=== PATIENT | male | born 1935 | race Caucasian/White ===

== ENCOUNTER 2017-02-12 11:04 | Emergency (ER) | payer MEDICARE ==
[2017-02-12 11:50] LABS: Hematocrit 38 % (42-52); Hemoglobin 12.7 g/dl (14.0-18.0); Mean Corpuscular HGB Conc 33 g/dl (31-36); Mean Corpuscular Hemoglobin 30 pg (27-31); Mean Corpuscular Volume 92 fL (80-94); Mean Platelet Volume 9 um3 (7.4-10.4); Red Blood Count 4.16 10^6/ul (4.0-5.4); Red Cell Distribution Width 18 % (10.5-15); White Blood Count 9.5 10^3/ul (3.5-10.8)
[2017-02-12 12:05] LABS: Albumin 3.5 g/dL (3.2-5.2); BUN/Creatinine Ratio 21.5 (8-20); C Reactive Protein 5.37 mg/L (< 5.00); Calcium 9.4 mg/dL (8.6-10.3); EGFR African American 84.9 (>60); Globulin 2.9 g/dL (2-4); Potassium 4.5 mmol/L (3.5-5.0); Total Bilirubin 1.5 mg/dL (0.2-1.0); Total Protein 6.4 g/dL (6.4-8.9); Uric Acid 5.7 mg/dL (4.4-7.6)
--- NOTE | 2017-02-12 12:53 | RAD ---
INDICATION: LEFT lower extremity edema. COMPARISON: No relevant prior exams available on the [facility] for comparison. TECHNIQUE: Manjarrez scale, color Doppler, and spectral analysis of the deep veins of the LEFT lower extremity. Vessel compression, phasicity, and augmentation assessed. REPORT: The LEFT common femoral, great saphenous, profunda femoral, femoral, popliteal, and posterior tibial veins are patent. Assessment of the peroneal veins is limited due to peroneal artery calcifications. Vague suggestion of compressibility of the peroneal veins however no flow detected within either peroneal vein on color Doppler. Patency of the RIGHT common femoral vein documented. 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 The adjacent posterior tibial calf veins as well as the popliteal and additional above knee LEFT lower extremity deep veins are patent.
--- NOTE | 2017-02-12 12:58 | RAD ---
INDICATION: Shortness of breath and bilateral lower extremity edema COMPARISON: None TECHNIQUE: PA and lateral views of the chest were obtained. FINDINGS: There is a single lead cardiac pacemaker. There is mild cardiomegaly. There is density obscuring the bilateral lung bases more severely the right than the left. More superiorly the lungs are aerated. The pulmonary vascular is engorged and indistinct. Visualized bones are normal for the patient's age. There is no radiographic evidence of free air beneath the diaphragm IMPRESSION: RADIOGRAPHIC FINDINGS ARE MOST CONSISTENT WITH CARDIOGENIC PULMONARY EDEMA WITH BIBASILAR PLEURAL EFFUSIONS.
[2017-02-12] MEDS ORDERED: cefTRIAXone(*) 1 GM in NS 0.9% 50 ML* 50 ML IVPB ONE (13:00)
[2017-02-12] MEDS ORDERED: cefTRIAXone(*) 1 GM in D5W 50 ML BAG* 50 ML IVPB ONE (13:24)
[2017-02-12 14:44] VITALS: BP 99/57
[2017-02-12 16:02] LABS: Urine Bacteria 1+ (Absent); Urine Bilirubin Negative (Negative); Urine Glucose Negative (Negative); Urine Nitrite Negative (Negative)
--- NOTE | 2017-02-13 15:29 | ED ---
Ruth Ann Snow Edward, scribed for Donovan Yoder MD on 02/12/17 at 1117 . Lower Extremity - HPI Summary HPI Summary: 81 y/o male presents to the ED c/o constant swelling in the L foot. The symptoms are not aggravated or alleviated with anything. Pt also has had pain at his R big toe that radiated up his R leg. Associated sx: L foot is warm to touch, chronic SOB that was worse two days ago. Pt lives at [facility]. Pt uses a wheelchair at [facility]. - History of Current Complaint Chief Complaint: EDExtremityLower Stated Complaint: FOOT PAIN Time Seen by Provider: 02/12/17 11:07 Hx Obtained From: Patient Severity Currently: Mild Pain Intensity: 4 Pain Scale Used: 0-10 Numeric Timing: Constant Location: Is Discrete @ - L foot Associated Signs And Symptoms: Positive: Swelling, Other - R big toe pain Aggravating Factor(s): Nothing Alleviating Factor(s): Nothing - Allergies/Home Medications Allergies/Adverse Reactions: Allergies Allergy/AdvReac Type Severity Reaction Status Date / Time sulfa Allergy Unknown Uncoded 02/12/17 11:12 Reaction Details Home Medications: Home Medications Allopurinol TAB* [Zyloprim 100 MG TAB*] 100 mg PO DAILY 02/12/17 [History Confirmed 02/12/17] Apixaban* [Eliquis*] 2.5 mg PO Q12HR 02/12/17 [History Confirmed 02/12/17] Dutasteride (NF) [Avodart (NF)] 0.5 mg PO DAILY 02/12/17 [History Confirmed 06/26] Furosemide TAB* [Lasix TAB*] 40 mg PO BID 02/12/17 [History Confirmed 02/12/17] Melatonin 2 ml PO BEDTIME 02/12/17 [History Confirmed 02/12/17] Metoprolol Succinate XL TAB* [Toprol XL TAB*] 25 mg PO DAILY 02/12/17 [History Confirmed 02/12/17] Omeprazole CAP* [Prilosec CAP* 20 MG] 20 mg PO DAILY 02/12/17 [History Confirmed 02/12/17] Polyethylene Glycol 3350* [Miralax*] 17 gm PO DAILY PRN 02/12/17 [History Confirmed 02/12/17] Potassium Chlor TAB* [Klor Con ER TAB*] 20 meq PO BID 02/12/17 [History Confirmed 02/12/17] Pravastatin (NF) [Pravachol (NF)] 20 mg PO BEDTIME 02/12/17 [History Confirmed 02/12/17] Sodium Phosphate ADULT ENEMA* [Fleet Enema*] 1 enema [place] DAILY PRN 02/12/17 [ History Confirmed 02/12/17] PMH/Surg Hx/FS Hx/Imm Hx Previously Healthy: No Cardiovascular History: Reports: Hx Atrial Fibrillation, Hx Congestive Heart Failure History: Reports: Hx Acute Renal Failure - Surgical History Surgery Procedure, Year, and Place: Gall bladder removal, APPY, TONSILLECTOMY Infectious Disease History: No Infectious Disease History: Denies: Traveled Outside the [place] in Last 30 Days - Family History Known Family History: Positive: Cardiac Disease - Social History Occupation: Retired Lives: Assisted Living Alcohol Use: None Hx Substance Use: No Substance Use Type: Reports: None Hx Tobacco Use: No Smoking Status (MU): Never Smoked Tobacco Review of Systems Constitutional: Negative Eyes: Negative ENT: Negative Cardiovascular: Negative Respiratory: Negative Gastrointestinal: Negative Genitourinary: Negative Positive: Edema, Other - R big toe pain Skin: Negative Neurological: Negative Psychological: Normal All Other Systems Reviewed And Are Negative: Yes Physical Exam - Summary Physical Exam Summary: PE - good pulses, foot is warm. minimal tenderness. Triage Information Reviewed: Yes Vital Signs On Initial Exam: Initial Vitals Temp Pulse Resp BP Pulse Ox 98.1 F 68 16 108/70 98 02/12/17 11:04 02/12/17 11:04 02/12/17 11:04 02/12/17 11:04 02/12/17 11:04 Vital Signs Reviewed: Yes Diagnostics - Vital Signs Vital Signs Temp Pulse Resp BP Pulse Ox 02/12/17 11:04 98.1 F 68 16 108/70 98 - Laboratory Result Diagrams: 02/12/17 11:34 02/12/17 11:34 Lab Statement: Any lab studies that have been ordered have been reviewed, and results considered in the medical decision making process. - Radiology CXR Xray Interpretation: Positive (See Comments) - RADIOGRAPHIC FINDINGS ARE MOST CONSISTENT WITH CARDIOGENIC PULMONARY EDEMA WITH BIBASILAR PLEURAL EFFUSIONS. 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 The adjacent posterior tibial calf veins as well as the popliteal and additional above knee LEFT lower extremity deep veins are patent. Ultrasound Interpretation Completed By: Radiologist - ED PHYSICIAN REVIEWS AND AGREES Lower Extremity Course/Dx - Course Assessment/Plan: 81 y/o male presents to the ED c/o constant swelling in the L foot. The symptoms are not aggravated or alleviated with anything. Pt also has had pain at his R big toe that radiated up his R leg. Associated sx: L foot is warm to touch, chronic SOB that was worse two days ago. Pt lives at [facility]. Pt uses a wheelchair at [facility]. CXR SHOWS RADIOGRAPHIC FINDINGS ARE MOST CONSISTENT WITH CARDIOGENIC PULMONARY EDEMA WITH BIBASILAR PLEURAL EFFUSIONS. 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 The adjacent posterior tibial calf veins as well as the popliteal and additional above knee LEFT lower extremity deep veins are patent. Test results without significant abnormalities except slight anemia, Glucose 132. Lactic acid 2.9. CRP 5.37. US negative for DVT. I believe the pt may be developing slight cellulitis and given Rocephin. The pt will be d/c home on Keflex. The pt is hemodynamically stable, A&Ox3. - Diagnoses Provider Diagnoses: Cellulitis Discharge - Discharge Plan Condition: Stable Disposition: HOME Prescriptions: Cephalexin CAP* [Keflex CAP*] 500 mg PO QID #40 cap Patient Education Materials: Cellulitis (ED) Referrals: [facility]IAN REFERRAL [Outside] - 4 Days (PLEASE F/U IN 3-5 DAYS) The documentation as recorded by the Ruth Ann villegas Edward accurately reflects the service I personally performed and the decisions made by me, Donovan Yoder MD.
--- NOTE | 2017-02-14 09:22 | ED ---
Progress - Progress Note Progress Note: Pt's urine cx reveals >100,00 klebsiella pneum. His report reveals he was dx'd and tx'd for cellulitis w/ keflex. Sensitivities pending. No change in tx at this time. Course/Dx - Diagnoses Provider Diagnoses: Cellulitis
== END 2017-02-12 15:48 | disposition home or self-care (01) ==
LOC: ED 11:04
DX: L03.116 Cellulitis of left lower limb (principal); I48.91 Unspecified atrial fibrillation; I50.9 Heart failure, unspecified; Z88.2 Allergy status to sulfonamides
CPT/HCPCS: 36415; 71020; 80053; 81003; 81015; 83605; 84550; 85025; 86140; 87040; 87077; 87086; 87186; 99284; J0696